=== PATIENT | male | born 1970 | race Caucasian/White ===

== ENCOUNTER 2024-10-20 12:40 | Emergency (ER) | payer SELFPAY ==
[2024-10-20 12:44] VITALS: BP 165/92
[2024-10-20 14:28] VITALS: BP 130/81
[2024-10-20 14:40] VITALS: BMI 32.2
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
[2024-10-20] MEDS: TYLENOL 650 MG PO (16:15)
[2024-10-20] MEDS: TORADOL 15 MG IM (17:54)
== END 2024-10-20 19:01 | disposition home or self-care (01) ==
LOC: EMR 12:40
PROVIDERS: EMERGENCY PHYSICIAN Emergency Medicine; FAMILY PHYSICIAN Internal Medicine
DX: S06.0X0A Concussion without loss of consciousness, initial encounter (principal); S16.1XXA Strain of muscle, fascia and tendon at neck level, initial encounter; V43.52XA Car driver injured in collision with other type car in traffic accident, initial encounter
CPT/HCPCS: 99285; 96372; 70450; 72100; 72125